=== PATIENT | female | born 1980 ===

== ENCOUNTER 2022-04-23 21:40 | Inpatient (IN) | payer BC ==
[~2022-04-23] VITALS: Ht 162.6 cm; Wt 55.5 kg
[2022-04-23] MEDS ORDERED: TYLENOL 500MG500 MG PO (22:52)
[2022-04-23] MEDS ORDERED: MOTRIN 200200 MG/TAB PO (22:53)
[2022-04-23 23:54] VITALS: BP 108/59; PULSE 117; TEMP 99.2
[2022-04-24] VITALS (7 sets, daily range): BP systolic 98–117; BP diastolic 59–65; PULSE 97–130; TEMP 97.4–101
[2022-04-24 01:22] LABS: CALCIUM 7.2 mg/dL (8.4-10.2); CREATININE, serum 1.17 mg/dL (0.57-1.11); MAGNESIUM 1.6 mg/dL (1.6-2.6)
[2022-04-24 03:00] LABS: COLLECTION METHOD CLEAN CATCH
[2022-04-24 03:04] LABS: URINE APPEARANCE Clear (CLEAR/HAZY); URINE BLOOD 1+ (NEGATIVE); URINE COLOR Yellow (YELLOW); URINE GLUCOSE Negative (NEGATIVE); URINE KETONE Negative (NEGATIVE); URINE NITRATE Negative (NEGATIVE); URINE PROTEIN(semi-quant) 1+ (NEGATIVE); URINE UROBILINOGEN 0.2 E.U/dL (0.2-1.0)
[2022-04-24 03:19] LABS: SQUAMOUS EPITHELIAL 0-2 /hpf (0-10); URINE BACTERIA Rare /hpf (NONE SEEN)
[2022-04-24 07:05] LABS: HEMATOCRIT 36.8 % (37.0-47.0); MEAN CELL VOLUME 90 fl (80.0-100.0); MEAN CORPUSCULAR HEMOGLOBIN 32 pg (27-31); MEAN CORPUSCULAR HGB CONC 35 g/dl (33.0-37.0); PLATELET COUNT 154 K/mm3 (130-400); RED BLOOD COUNT 4.07 M/mm3 (4.10-5.30); REDCELL DISTRIBUTION WIDTH-CV 12.3 % (11.5-14.5)
[2022-04-24 07:13] LABS: CALCIUM 7.5 mg/dL (8.4-10.2); CREATININE, serum 0.99 mg/dL (0.57-1.11); POTASSIUM 3.2 mmol/L (3.5-4.5)
--- NOTE | 2022-04-24 07:45 | NUR ---
Shift assesment complete. Patient is A&O. Telemetry on Sinus Tachycardia. Left forearm IV intact and infusing potasssium. Patient has complaints for throat discomfort. Peritonsillar area is red. Patient able to swallow without difficulty. Call light left within reach.
[2022-04-24 07:48] LABS: BAND 36 % (0-10); NEUTROPHILS 64 % (42.0-75.2); PLATELET ESTIMATE NORMAL (NORMAL)
--- NOTE | 2022-04-24 08:08 | NUR ---
Pt assessment complete. Pt sitting up in bed upon entry, she is A/O x4. Her breathing is even and unlabored on 2L O2 via NC. Pt reports she does have SOB. Also reports sore throat, mild redness visualized. Intermittent productive cough is present. Denies any body aches or nausea at this time. POC discussed with patient, no further needs. Call light within reach.
--- NOTE | 2022-04-24 19:31 | NUR ---
Pt was turned down to 0.5L O2 via NC, did reports some SOB/difficulty breathing. O2 sat assessed and >95% but turned up to 1L for comfort. POC discussed with patient and her guests. No needs at this time.
[2022-04-25 04:14] VITALS: BP 101/62; PULSE 87; TEMP 97.5
[2022-04-25 07:30] LABS: HEMOGLOBIN 11.3 g/dl (12.5-16.0); MEAN CELL VOLUME 89 fl (80.0-100.0); MEAN CORPUSCULAR HEMOGLOBIN 33 pg (27-31); MEAN CORPUSCULAR HGB CONC 37 g/dl (33.0-37.0); MEAN PLATELET VOLUME 10.1 fl (7.4-10.4); PLATELET COUNT 135 K/mm3 (130-400); RED BLOOD COUNT 3.48 M/mm3 (4.10-5.30); REDCELL DISTRIBUTION WIDTH-CV 12.9 % (11.5-14.5)
--- NOTE | 2022-04-25 07:39 | NUR ---
Critical WBC called to JONATHAN Chandra who read back the results.
[2022-04-25 07:41] VITALS: BP 102/66; PULSE 86; TEMP 96.9
[2022-04-25 07:51] LABS: INR 1.1 (0.8-3.0); PROTHROMBIN TIME 12.1 SECONDS (9.7-12.8)
[2022-04-25 08:06] LABS: MAGNESIUM 2.9 mg/dL (1.6-2.6)
[2022-04-25 08:09] LABS: C-REACTIVE PROTEIN 37.83 mg/dL (0.00-0.50)
--- NOTE | 2022-04-25 08:11 | NUR ---
PT ALERT AND AWAKE IN BED. COMPLAINTS OF SOB AFTER WALKING TO THE BATHROOM, REPORTS IT IS DIFFICULT FOR HER TO CATCH HER BREATH FOR A FEW MINUTES AFTER RETURNING TO BED. REPORTS SHE IS PRODUCING BROWN COLORED SPUTUM. NO COMPLAINTS OF PAIN. FRIEND AT BEDSIDE. NO NEEDS AT THIS TIME. BED IN LOWEST POSITION WITH CALL LIGHT WITHIN REACH.
[2022-04-25 08:18] LABS: BAND 19 % (0-10); LYMPHOCYTE 9 % (20.0-51.0); NEUTROPHILS 68 % (42.0-75.2); PLATELET ESTIMATE NORMAL (NORMAL)
[2022-04-25 09:23] LABS: ALBUMIN 1.8 gm/dL (3.5-5.0); BILIRUBIN,TOTAL 1.6 mg/dL (0.2-1.2); CALCIUM 7.3 mg/dL (8.4-10.2); CREATININE, serum 0.68 mg/dL (0.57-1.11); POTASSIUM 3.6 mmol/L (3.5-4.5); TOTAL PROTEIN 5.1 gm/dL (6.2-8.1)
--- NOTE | 2022-04-25 11:25 | NUR ---
The patient is being tested for TB. KRIS contacted the patient's room phone to complete intake. The patient's faith sister, Sister Jessica Lara (ph#[phone]), answered the phone. Jessica Lara states that the patient is unable to talk right now and the RN is in the room. Jessica Lara provides that the patient lives in [place] within the community of the adventism and sisters. She reports that the patient is independent with ADLs and does not have any DME. The patient's PCP is Dr. Batista and she receives her medications from [facility]. Jessica Lara states that the patient does not have a DPOA-HC, but they were interested in the form. Jessica Lara states that the patient is not and does not have any children. She states that the patient's parents are alive, but within the faith community, the faith sisters come before family. This is why they are interested in the DPOA-HC. Jessica Lara states that the plan is for the patient to return back home to their community upon discharge. KRIS collaborated with the patient's RN and provided her with the DPOA-HC form. *Discharge plan: home*
[2022-04-25 11:32] VITALS: BP 117/76; PULSE 98; TEMP 98.6
--- NOTE | 2022-04-25 14:14 | NUR ---
Dr. Feliciano notified in person this AM of positive blood cultures. Verbalized understanding.
[2022-04-25 15:37] VITALS: BP 104/71; PULSE 111; TEMP 99.3
[2022-04-25 19:22] VITALS: BP 116/78; PULSE 100; TEMP 97.5
[2022-04-26] VITALS (14 sets, daily range): BP systolic 97–164; BP diastolic 53–80; PULSE 63–101; TEMP 97.4–99.8
--- NOTE | 2022-04-26 08:15 | NUR ---
PT TRANSPORTED [facility]. CONSENT FOR BREEZ[facility] PROCEDURE HAD BEEN ORDERED AND SIGNED. NO CONSENT FOR ANESTHESIA WAS ORDERED. ANESTHESIA PROVIDER NOTIFIED 04/25 FOR CONSULT. CONSENT SHEET FOR ANESTHESIA WAS SENT DOWN WITH PATIENT TO [facility]. THIS RN NOTIFIED GUILHERME PIERCE THAT THE CONSENT FOR ANESTHESIA WAS NOT ORDERED AND NOT SIGNED. UPON RETURN TO THE FLOOR POST PROCEDURE, THE ANESTHESIA CONSENT FORM WAS FOUND STILL UNSIGNED. VSS POST PROCEDURE. PT RESTING COMFORTABLY IN BED.
[2022-04-26 08:36] LABS: INR 1.1 (0.8-3.0); PROTHROMBIN TIME 13.1 SECONDS (9.7-12.8)
[2022-04-26 08:40] LABS: CALCIUM 7.7 mg/dL (8.4-10.2); CREATININE, serum 0.59 mg/dL (0.57-1.11)
[2022-04-26 08:52] LABS: POTASSIUM 3.7 mmol/L (3.5-4.5)
[2022-04-26 19:48] LABS: TB GOLD INTERPRETATION Indeterminate (Negative)
[2022-04-27 03:10] VITALS: BP 115/77; PULSE 95; TEMP 98.1
[2022-04-27 06:33] LABS: HEMOGLOBIN 12.1 g/dl (12.5-16.0); MEAN CELL VOLUME 92 fl (80.0-100.0); MEAN CORPUSCULAR HEMOGLOBIN 32 pg (27-31); MEAN CORPUSCULAR HGB CONC 35 g/dl (33.0-37.0); MEAN PLATELET VOLUME 9.8 fl (7.4-10.4); RED BLOOD COUNT 3.79 M/mm3 (4.10-5.30); REDCELL DISTRIBUTION WIDTH-CV 13.2 % (11.5-14.5)
[2022-04-27 06:51] LABS: HEMATOCRIT 34.9 % (37.0-47.0); PLATELET COUNT 316 K/mm3 (130-400)
[2022-04-27 07:31] VITALS: BP 131/78; PULSE 108; TEMP 98.2
--- NOTE | 2022-04-27 08:00 | NUR ---
Patient is resting in bed, alert and oriented x 4, another sister at her bedside. Getting NS at 50 ml/hr. Complains of some coaugh specially with the potassium supplement. Assessment completed, no other need at this time. Call light within reach.
[2022-04-27 09:35] LABS: BAND 1 % (0-10); EOSINOPHIL 0 % (0-4); LYMPHOCYTE 19 % (20.0-51.0); NEUTROPHILS 75 % (42.0-75.2); PLATELET ESTIMATE NORMAL (NORMAL)
[2022-04-27 11:20] VITALS: BP 121/77; PULSE 108; TEMP 98.6
[2022-04-27 15:50] VITALS: BP 123/76; PULSE 107; TEMP 99.6
--- NOTE | 2022-04-27 16:26 | NUR ---
Received call from Sister Jessica Mast stating doctor Alex talked to Sister Jessica Lara, who makes decisions about pt treatment. They agreed to proceed with thoracentesis tomorrow 04/28 at 1030 am.
--- NOTE | 2022-04-27 18:43 | NUR ---
Patient had a shower this afternoon. Continue getting fluids and antibiotics per orders. At RA. Report will be given to night RN.
[2022-04-27 19:20] VITALS: BP 125/68; PULSE 113; TEMP 99.9
[2022-04-27 23:17] VITALS: BP 109/61; PULSE 106; TEMP 98.5
[2022-04-28 03:27] VITALS: BP 118/80; PULSE 93; TEMP 98.4
[2022-04-28 06:37] LABS: HEMOGLOBIN 12.4 g/dl (12.5-16.0); MEAN CELL VOLUME 93 fl (80.0-100.0); MEAN CORPUSCULAR HEMOGLOBIN 32 pg (27-31); MEAN CORPUSCULAR HGB CONC 34 g/dl (33.0-37.0); MEAN PLATELET VOLUME 9.6 fl (7.4-10.4); RED BLOOD COUNT 3.91 M/mm3 (4.10-5.30); REDCELL DISTRIBUTION WIDTH-CV 13.5 % (11.5-14.5)
[2022-04-28 06:46] LABS: C-REACTIVE PROTEIN 15.36 mg/dL (0.00-0.50); CALCIUM 8.3 mg/dL (8.4-10.2); CREATININE, serum 0.54 mg/dL (0.57-1.11); MAGNESIUM 1.8 mg/dL (1.6-2.6); POTASSIUM 3.9 mmol/L (3.5-4.5)
[2022-04-28 07:02] LABS: HEMATOCRIT 36.2 % (37.0-47.0)
[2022-04-28 07:03] LABS: PLATELET COUNT 451 K/mm3 (130-400)
[2022-04-28 07:25] VITALS: BP 130/76; PULSE 116; TEMP 100.1
[2022-04-28 07:38] LABS: BAND 6 % (0-10); EOSINOPHIL 1 % (0-4); LYMPHOCYTE 13 % (20.0-51.0); NEUTROPHILS 70 % (42.0-75.2); NUCLEATED RED BLOOD CELL 1 (0-6)
[2022-04-28 07:39] LABS: MYELOCYTE 0 % (0-0)
[2022-04-28 07:40] LABS: METAMYELOCYTE 3 % (0-0); PLATELET ESTIMATE INCREASED (NORMAL)
--- NOTE | 2022-04-28 08:00 | NUR ---
Patient is resting in bed, alert and orietned x 4, tachycardic, 100.1 fever. Assessment completed, no other needs at this time. Call light within reach.
[2022-04-28 11:19] VITALS: BP 116/70; PULSE 104; TEMP 97.8
--- NOTE | 2022-04-28 12:57 | NUR ---
Inside Sales Director rounds: Patient was sitting up on the window bench. 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 A visitor in ruin's full habit was with her, also seated on the window bench. Both declined project scheduler visit.
[2022-04-28 15:31] VITALS: BP 127/76; PULSE 118; TEMP 99.8
--- NOTE | 2022-04-28 19:10 | NUR ---
Patient has been calm in her room. Continues with low fever and tachycardic. Receiving antibiotics per orders. Report given to night RN.
[2022-04-28 20:27] VITALS: BP 116/68; PULSE 120; TEMP 98.1
[2022-04-29] VITALS (7 sets, daily range): BP systolic 94–118; BP diastolic 54–75; PULSE 110–123; TEMP 97.9–100.1
--- NOTE | 2022-04-29 01:14 | NUR ---
NURSING SHIFT ASSESSMENT COMPLETED. THE PATIENT DENIED PAIN. THE PLAN OF CARE WAS DISCUSSED AND EVENING MEDICATIONS DISCUSSED WELL. THE PATIENT REQUESTED FRESH WATER WHICH WAS PROVIDED. NO OTHER NEEDS AT THIS TIME. THE PATIENT DOES HAVE A PRODUCTIVE CONGESTED COUGH. BED IN LOW POSITION. CALL LIGHT AVAILABLE. WILL MONITOR.
[2022-04-29 06:31] LABS: HEMOGLOBIN 11.2 g/dl (12.5-16.0); MEAN CELL VOLUME 92 fl (80.0-100.0); MEAN CORPUSCULAR HEMOGLOBIN 32 pg (27-31); MEAN CORPUSCULAR HGB CONC 35 g/dl (33.0-37.0); MEAN PLATELET VOLUME 9.5 fl (7.4-10.4); PLATELET COUNT 514 K/mm3 (130-400); RED BLOOD COUNT 3.47 M/mm3 (4.10-5.30); REDCELL DISTRIBUTION WIDTH-CV 13.4 % (11.5-14.5)
[2022-04-29 06:36] LABS: HEMATOCRIT 31.8 % (37.0-47.0)
[2022-04-29 06:57] LABS: ALBUMIN 1.8 gm/dL (3.5-5.0); BILIRUBIN,TOTAL 1.1 mg/dL (0.2-1.2); CALCIUM 8.2 mg/dL (8.4-10.2); CREATININE, serum 0.57 mg/dL (0.57-1.11); MAGNESIUM 1.8 mg/dL (1.6-2.6); POTASSIUM 3.6 mmol/L (3.5-4.5); TOTAL PROTEIN 5.3 gm/dL (6.2-8.1)
--- NOTE | 2022-04-29 07:14 | NUR ---
LAB CALLED WITH A WBC OF 31.6 AT 06:36. REPORT GIVEN TO GUILHERME MONTAÑO AND SHE IS GOING TO RELAY THIS INFORMATION TO THE ONCOMING HOSPITALIST. THE PRIOR WBC WAS 37.4. CARE TRANSFERRED.
[2022-04-29 08:06] LABS: BAND 4 % (0-10); BASOPHIL 1 % (0-2); LYMPHOCYTE 10 % (20.0-51.0); METAMYELOCYTE 3 % (0-0); MYELOCYTE 3 % (0-0)
[2022-04-29 08:07] LABS: PLATELET ESTIMATE INCREASED (NORMAL)
[2022-04-29 08:10] LABS: NEUTROPHILS 70 % (42.0-75.2)
--- NOTE | 2022-04-29 08:33 | NUR ---
PT AWAKE, ALERT AND ORIENTED SEATED IN THE RECLINER. AM ASSESSMENT COMPLETE, NO COMPLAINTS OF PAIN OR NAUSEA.
--- NOTE | 2022-04-29 12:01 | NUR ---
PT OFF THE FLOOR TO CT
[2022-04-30 03:39] VITALS: BP 118/68; PULSE 92; TEMP 98.2
[2022-04-30 06:49] LABS: HEMOGLOBIN 11.3 g/dl (12.5-16.0); MEAN CELL VOLUME 95 fl (80.0-100.0); MEAN CORPUSCULAR HEMOGLOBIN 32 pg (27-31); MEAN CORPUSCULAR HGB CONC 34 g/dl (33.0-37.0); MEAN PLATELET VOLUME 9.6 fl (7.4-10.4); PLATELET COUNT 604 K/mm3 (130-400); RED BLOOD COUNT 3.52 M/mm3 (4.10-5.30); REDCELL DISTRIBUTION WIDTH-CV 13.6 % (11.5-14.5)
[2022-04-30 06:59] LABS: CALCIUM 8.4 mg/dL (8.4-10.2); CREATININE, serum 0.57 mg/dL (0.57-1.11); MAGNESIUM 1.9 mg/dL (1.6-2.6); POTASSIUM 4.1 mmol/L (3.5-4.5)
[2022-04-30 07:00] LABS: HEMATOCRIT 33.3 % (37.0-47.0)
[2022-04-30 07:31] LABS: BAND 4 % (0-10); BASOPHIL 1 % (0-2); EOSINOPHIL 1 % (0-4); LYMPHOCYTE 20 % (20.0-51.0); METAMYELOCYTE 1 % (0-0); NEUTROPHILS 68 % (42.0-75.2)
[2022-04-30 07:32] VITALS: BP 124/71; PULSE 102; TEMP 99
[2022-04-30 07:32] LABS: PLATELET ESTIMATE INCREASED (NORMAL)
--- NOTE | 2022-04-30 08:00 | NUR ---
Patient is eating breakfast on bed, alert and oriented x 4, states she feels better. Continues with cough. Assessment completed, meds provided. No other needs at this time. Call light within reach.
[2022-04-30 11:01] LABS: PLEURAL FLUID RBC 7000 /mm3 (0-0)
[2022-04-30 11:11] VITALS: BP 126/78; PULSE 128; TEMP 98.4
[2022-04-30 11:23] LABS: PLEURAL FLUID WBC 30905 /mm3
[2022-04-30 11:24] LABS: PLEURAL FLUID COLOR YELLOW
[2022-04-30 11:25] LABS: PLEURAL FLUID APPEARANCE CLOUDY
[2022-04-30 15:39] VITALS: BP 112/68; PULSE 107; TEMP 99.1
--- NOTE | 2022-04-30 19:12 | NUR ---
Patient continues with cough, PRN provided. She has some pain with breathing, getting ibuprofen. Report given to night RN.
[2022-04-30 19:56] VITALS: BP 111/74; PULSE 113; TEMP 98.4
[2022-05-01] VITALS (7 sets, daily range): BP systolic 103–125; BP diastolic 61–74; PULSE 103–121; TEMP 96.7–99.1
[2022-05-01 00:12] LABS: BODY FLUID PH (AMS) 8 (())
[2022-05-01 06:55] LABS: HEMOGLOBIN 11.5 g/dl (12.5-16.0); MEAN CELL VOLUME 94 fl (80.0-100.0); MEAN CORPUSCULAR HEMOGLOBIN 32 pg (27-31); MEAN CORPUSCULAR HGB CONC 34 g/dl (33.0-37.0); MEAN PLATELET VOLUME 9.2 fl (7.4-10.4); RED BLOOD COUNT 3.59 M/mm3 (4.10-5.30); REDCELL DISTRIBUTION WIDTH-CV 13.3 % (11.5-14.5)
[2022-05-01 07:00] LABS: HEMATOCRIT 33.9 % (37.0-47.0); PLATELET COUNT 797 K/mm3 (130-400)
[2022-05-01 07:10] LABS: CALCIUM 8.9 mg/dL (8.4-10.2); CREATININE, serum 0.56 mg/dL (0.57-1.11); MAGNESIUM 2.1 mg/dL (1.6-2.6)
[2022-05-01 07:30] LABS: BAND 5 % (0-10); EOSINOPHIL 2 % (0-4); LYMPHOCYTE 9 % (20.0-51.0); MYELOCYTE 1 % (0-0)
[2022-05-01 07:31] LABS: METAMYELOCYTE 1 % (0-0); NEUTROPHILS 75 % (42.0-75.2); PLATELET ESTIMATE INCREASED (NORMAL)
--- NOTE | 2022-05-01 09:26 | NUR ---
Take Up Supervisor met with patient to review discharge plan. Patient has no questions or concerns at this time and plans to return home at time of discharge. Discharge Plan: Home
--- NOTE | 2022-05-01 10:00 | NUR ---
Pt ambulated in zimmerman approximately 350 feet. No complaints of shortness of air. Pulse oximetry 100% after ambulation.
--- NOTE | 2022-05-01 18:02 | NUR ---
Shift assessment performed. Scheduled medications given. PRN motrin given Q4 per request of patient. VSS. Patient A&O. Currently on RA. Patient currently resting in bed, denies any pain, discomfort, SOA, or further need at this time. Call light in reach.
[2022-05-02 03:45] VITALS: BP 115/72; PULSE 102; TEMP 97.9
[2022-05-02 06:57] LABS: HEMOGLOBIN 11.4 g/dl (12.5-16.0); MEAN CELL VOLUME 96 fl (80.0-100.0); MEAN CORPUSCULAR HEMOGLOBIN 32 pg (27-31); MEAN CORPUSCULAR HGB CONC 33 g/dl (33.0-37.0); MEAN PLATELET VOLUME 9.7 fl (7.4-10.4); PLATELET COUNT 857 K/mm3 (130-400); RED BLOOD COUNT 3.58 M/mm3 (4.10-5.30); REDCELL DISTRIBUTION WIDTH-CV 13.2 % (11.5-14.5)
[2022-05-02 07:01] LABS: HEMATOCRIT 34.2 % (37.0-47.0)
[2022-05-02 07:04] LABS: CALCIUM 8.8 mg/dL (8.4-10.2); CREATININE, serum 0.59 mg/dL (0.57-1.11)
[2022-05-02 07:56] LABS: BAND 2 % (0-10); LYMPHOCYTE 9 % (20.0-51.0); METAMYELOCYTE 1 % (0-0); NEUTROPHILS 84 % (42.0-75.2); PLATELET ESTIMATE INCREASED (NORMAL)
[2022-05-02 07:59] VITALS: BP 114/60; PULSE 109; TEMP 97.7
--- NOTE | 2022-05-02 08:00 | NUR ---
Patient is on the chair having breakfast, alert and oriented x 4, states she feels better. She is coughing less. Still states pain on the right side. Assessment completed, meds provided. No other needs at this time. Call light within reach.
[2022-05-02 12:14] VITALS: BP 124/76; PULSE 112; TEMP 97.7
[2022-05-02 15:47] VITALS: BP 117/64; PULSE 124; TEMP 98.6
[2022-05-02 19:33] VITALS: BP 109/65; PULSE 111; TEMP 97.8
[2022-05-02 23:59] VITALS: BP 104/62; PULSE 98; TEMP 98.2
[2022-05-03 03:40] VITALS: BP 114/76; PULSE 96; TEMP 97.9
[2022-05-03 06:41] LABS: HEMOGLOBIN 10.8 g/dl (12.5-16.0); MEAN CELL VOLUME 94 fl (80.0-100.0); MEAN CORPUSCULAR HEMOGLOBIN 32 pg (27-31); MEAN CORPUSCULAR HGB CONC 34 g/dl (33.0-37.0); MEAN PLATELET VOLUME 9.1 fl (7.4-10.4); PLATELET COUNT 1066 K/mm3 (130-400); REDCELL DISTRIBUTION WIDTH-CV 13.1 % (11.5-14.5)
[2022-05-03 06:58] LABS: CALCIUM 8.9 mg/dL (8.4-10.2); CREATININE, serum 0.55 mg/dL (0.57-1.11); POTASSIUM 3.9 mmol/L (3.5-4.5)
[2022-05-03 07:06] LABS: HEMATOCRIT 32.1 % (37.0-47.0)
[2022-05-03 07:18] LABS: BAND 1 % (0-10); EOSINOPHIL 5 % (0-4); LYMPHOCYTE 7 % (20.0-51.0); METAMYELOCYTE 1 % (0-0); MYELOCYTE 2 % (0-0); NEUTROPHILS 81 % (42.0-75.2); PLATELET ESTIMATE INCREASED (NORMAL)
[2022-05-03 07:30] VITALS: BP 106/66; PULSE 101; TEMP 97.4
--- NOTE | 2022-05-03 09:52 | NUR ---
PT AWAKE AND ALERT IN CHAIR. NO COMPLAINTS OF PAIN, SOB, OR NAUSEA. HAS QUESTIONS ABOUT DISPOSITION AND IV ANTIBIOTICS. NO OTHER NEEDS AT THIS TIME.
[2022-05-03 11:19] VITALS: BP 115/68; PULSE 104; TEMP 97.3
[2022-05-03 15:43] VITALS: BP 120/65; PULSE 114; TEMP 97.4
[2022-05-03 20:05] VITALS: BP 114/68; PULSE 108; TEMP 98.6
--- NOTE | 2022-05-03 23:04 | NUR ---
Pt in bed for shift assessment around 2129. A&Ox4. Pt continue reporting pain that feels like "electricity" on the right side of her back. Pt was offered Tylenol and she accepted it. All medication given per emar. LAC INT DC with tip intact. RAC INT is CDI. No further requests were expressed at this time. Education provided on IS use. Pt verbalized understanding. Belongings and call light within reach.
[2022-05-04] VITALS (7 sets, daily range): BP systolic 105–127; BP diastolic 64–77; PULSE 83–116; TEMP 97.4–98.7
[2022-05-04 06:15] LABS: HEMOGLOBIN 10.6 g/dl (12.5-16.0); MEAN CELL VOLUME 94 fl (80.0-100.0); MEAN CORPUSCULAR HEMOGLOBIN 32 pg (27-31); MEAN CORPUSCULAR HGB CONC 33 g/dl (33.0-37.0); MEAN PLATELET VOLUME 9.3 fl (7.4-10.4); PLATELET COUNT 1199 K/mm3 (130-400); RED BLOOD COUNT 3.37 M/mm3 (4.10-5.30)
[2022-05-04 06:17] LABS: HEMATOCRIT 31.8 % (37.0-47.0)
[2022-05-04 06:38] LABS: BILIRUBIN,TOTAL 0.6 mg/dL (0.2-1.2); C-REACTIVE PROTEIN 15.65 mg/dL (0.00-0.50); CALCIUM 9.2 mg/dL (8.4-10.2); CREATININE, serum 0.62 mg/dL (0.57-1.11); POTASSIUM 4.2 mmol/L (3.5-4.5); TOTAL PROTEIN 6.7 gm/dL (6.2-8.1)
[2022-05-04 07:03] LABS: BAND 2 % (0-10); BASOPHIL 1 % (0-2); EOSINOPHIL 2 % (0-4); NEUTROPHILS 73 % (42.0-75.2)
[2022-05-04 07:04] LABS: LYMPHOCYTE 11 % (20.0-51.0); METAMYELOCYTE 2 % (0-0); PLATELET ESTIMATE INCREASED (NORMAL)
--- NOTE | 2022-05-04 07:30 | NUR ---
PT AWAKE, ALERT AND ORIENTED IN BED. BACK PAIN NOTED, BUT IMPROVING AND MANAGED WELL WITH PRNS. CT TO BE COMPLETED THIS AM. BED IN LOWEST POSITION, CALL LIGHT WITHIN REACH.
--- NOTE | 2022-05-04 23:21 | NUR ---
NURSING SHIFT ASSESSMENT COMPLETED. THE PATIENT WAS IN BED RESTING COMFORTABLY. PAIN RIGHT CHEST WITH COUGHING RATED ABOUT A 3/10. PRN TYLENOL TO BE PROVIDED. THE PATIENT DENIED NEEDS OTHER THAN THE TYLENOL. THE PLAN OF CARE AND EVENING MEDICATIONS DISCUSSED. PERSONAL ITEMS WITHIN REACH. CALL LIGHT WITHIN REACH AND BED IN LOW POSITION. WILL MONITOR.
[2022-05-05 03:37] VITALS: BP 112/65; PULSE 102; TEMP 98.6
[2022-05-05 06:28] LABS: HEMOGLOBIN 11.3 g/dl (12.5-16.0); MEAN CELL VOLUME 96 fl (80.0-100.0); MEAN CORPUSCULAR HEMOGLOBIN 32 pg (27-31); MEAN CORPUSCULAR HGB CONC 33 g/dl (33.0-37.0); PLATELET COUNT 1264 K/mm3 (130-400); RED BLOOD COUNT 3.56 M/mm3 (4.10-5.30); REDCELL DISTRIBUTION WIDTH-CV 12.8 % (11.5-14.5)
[2022-05-05 06:30] LABS: HEMATOCRIT 34.1 % (37.0-47.0)
[2022-05-05 06:35] LABS: CALCIUM 9.1 mg/dL (8.4-10.2); CREATININE, serum 0.61 mg/dL (0.57-1.11); POTASSIUM 3.8 mmol/L (3.5-4.5)
[2022-05-05 07:02] LABS: BAND 1 % (0-10); LYMPHOCYTE 13 % (20.0-51.0); METAMYELOCYTE 2 % (0-0); NEUTROPHILS 73 % (42.0-75.2); PLATELET ESTIMATE INCREASED (NORMAL)
[2022-05-05 07:07] VITALS: BP 121/69; PULSE 111; TEMP 98
--- NOTE | 2022-05-05 07:15 | NUR ---
Pt assessment complete. Pt is sitting up in the recliner upon entry, she is A/O x4. Her breathing is even and unlabored on RA. Pt denies SOB at this time. Intermittent cough present. Pain improved after Motrin. Denies N/V. No needs at this time. Call light within reach.
[2022-05-05 13:41] VITALS: BP 121/71; PULSE 111; TEMP 98.7
[2022-05-05 16:55] VITALS: BP 132/79; PULSE 108; TEMP 97.5
--- NOTE | 2022-05-05 18:50 | NUR ---
Pt remained on RA through the day, continued to have mild SOB with exertion. PRN Ibuprofen administered for intermittent pain which relieved pain. She had many visitors through the day. Resting in bed at this time.
[2022-05-05 20:42] VITALS: BP 136/77; PULSE 108; TEMP 97.9
--- NOTE | 2022-05-05 23:21 | NUR ---
Pt assessment completed at 2130. A&O x4. All medication given per emar. After requesting pt to perform a few deep breathings during auscultation, pt expressed needing her pain medication. IS exercises were not performed due to pain. No other needs or concerns were expressed at this time. RAC INT is CDI. Fluids running at this time. Belongigns and call light within reach.
[2022-05-05 23:57] VITALS: BP 108/67; PULSE 89; TEMP 98.1
[2022-05-06 03:31] VITALS: BP 112/68; PULSE 94; TEMP 97.9
[2022-05-06 06:07] LABS: HEMOGLOBIN 11.4 g/dl (12.5-16.0); MEAN CELL VOLUME 92 fl (80.0-100.0); MEAN CORPUSCULAR HEMOGLOBIN 32 pg (27-31); MEAN CORPUSCULAR HGB CONC 34 g/dl (33.0-37.0); MEAN PLATELET VOLUME 8.7 fl (7.4-10.4); PLATELET COUNT 1313 K/mm3 (130-400); RED BLOOD COUNT 3.61 M/mm3 (4.10-5.30); REDCELL DISTRIBUTION WIDTH-CV 12.5 % (11.5-14.5)
[2022-05-06 06:14] LABS: HEMATOCRIT 33.3 % (37.0-47.0)
[2022-05-06 06:23] LABS: CALCIUM 9.5 mg/dL (8.4-10.2); CREATININE, serum 0.62 mg/dL (0.57-1.11)
[2022-05-06 07:50] LABS: BAND 4 % (0-10); BASOPHIL 1 % (0-2); EOSINOPHIL 2 % (0-4); LYMPHOCYTE 14 % (20.0-51.0); METAMYELOCYTE 1 % (0-0); MYELOCYTE 6 % (0-0); NEUTROPHILS 59 % (42.0-75.2); PLATELET ESTIMATE INCREASED (NORMAL)
[2022-05-06 08:06] VITALS: BP 129/80; PULSE 122; TEMP 97.5
--- NOTE | 2022-05-06 09:52 | NUR ---
RKIS met with patient and head sister at bedside to discuss [facility] again. KRIS notified them that at this point [facility] is not comfortable sending the patient home with oral antibiotics and outpatient follow up. Informed them that at this point [facility] is our only option. Sister and patient are ok with going to [facility] if this is her only option. Phone call made to Rylan to place patient at the top of his list. Per Rylan, patients insurance is appoved for LT[facility]. Clinical updates faxed. Rylan will let me know on bed status. Discharge plan:[facility]
[2022-05-06 11:18] VITALS: BP 117/73; PULSE 105; TEMP 98.2
[2022-05-06 15:32] VITALS: BP 115/73; PULSE 108; TEMP 97.7
--- NOTE | 2022-05-06 19:02 | NUR ---
Patient had uneventful day. Minimal pain, relieved by PRNs. Complaints of cough toward the end of the day, relieved by PRNs. Resting in room with friends.
[2022-05-06 20:10] VITALS: BP 129/75; PULSE 117; TEMP 97.9
[2022-05-07 00:56] VITALS: BP 117/71; PULSE 92; TEMP 97.9
[2022-05-07 04:30] VITALS: BP 127/77; PULSE 97; TEMP 97.9
--- NOTE | 2022-05-07 05:54 | NUR ---
PT HAD AN UNEVENTFUL NIGHT AND WAS ABLE TO GET REST. PTS VITAL SIGNS REMAINED WITHIN NORMAL LIMITS, MOTRIN GIVEN X1 PT ALSO REQUESTED AIDE FOR COUGH. MEDICATIONS GIVEN PER MAY. PT CURRENTLY RESTING WITH EYES CLOSED IN BED, NO NEW REQUESTS AT THIS TIME
[2022-05-07 06:51] LABS: CALCIUM 9.6 mg/dL (8.4-10.2); CREATININE, serum 0.65 mg/dL (0.57-1.11); HEMOGLOBIN 11.7 g/dl (12.5-16.0); MEAN CELL VOLUME 95 fl (80.0-100.0); MEAN CORPUSCULAR HEMOGLOBIN 32 pg (27-31); MEAN CORPUSCULAR HGB CONC 33 g/dl (33.0-37.0); MEAN PLATELET VOLUME 8.7 fl (7.4-10.4); PLATELET COUNT 1220 K/mm3 (130-400); POTASSIUM 3.9 mmol/L (3.5-4.5); RED BLOOD COUNT 3.72 M/mm3 (4.10-5.30); REDCELL DISTRIBUTION WIDTH-CV 12.5 % (11.5-14.5)
[2022-05-07 06:55] LABS: HEMATOCRIT 35.3 % (37.0-47.0)
[2022-05-07 07:33] VITALS: BP 111/71; PULSE 95; TEMP 97.6
[2022-05-07 07:35] LABS: BAND 3 % (0-10); BASOPHIL 2 % (0-2); EOSINOPHIL 1 % (0-4); LYMPHOCYTE 19 % (20.0-51.0); METAMYELOCYTE 5 % (0-0)
[2022-05-07 07:37] LABS: MYELOCYTE 1 % (0-0); NEUTROPHILS 60 % (42.0-75.2)
[2022-05-07 07:38] LABS: PLATELET ESTIMATE INCREASED (NORMAL)
--- NOTE | 2022-05-07 08:00 | NUR ---
Patient is having breakfast sitting up on chair. Alert and oriented x 4, states she just had some motrin and cough meds. Continues with cough but right now under control. Tachycardic. Assessment completed. No other needs at this time. Call light within reach.
[2022-05-07 09:07] LABS: PATHOLOGY DIFF REVIEW OK
[2022-05-07 11:36] VITALS: BP 117/70; PULSE 105; TEMP 97.8
--- NOTE | 2022-05-07 12:49 | NUR ---
Report given to GUILHERME Blount at [facility].
[2022-05-07 13:32] VITALS: BP 117/70; PULSE 105; TEMP 97.8
--- NOTE | 2022-05-07 14:01 | NUR ---
Physical Plant Employee was notified by Rylan at [facility] that they have a bed available for patient today. Rylan met with patient who is agreeable to discharge to [facility] in [facility] today. KRIS also met with patient and her two sisters at bedside. All are in agreement with discharge to [facility] in . KRIS contacted [facility] and set transport time for 1400. KRIS placed completed EMS forms on patient's chart. KRIS faxed discharge orders to Rylan at [facility]. Discharge Plan: [facility]
--- NOTE | 2022-05-07 14:50 | NUR ---
Patient was picked up by EMS at 1415.
== END 2022-05-07 14:15 | DRG 871 ==
LOC: MEDICAL 21:40
PROVIDERS: Internal Medicine Pulmonary Disease; Physician Assistant; Student in an Organized Health Care Education/Training Program; ADMIT Internal Medicine
PROC: 0W993ZX Drainage of Right Pleural Cavity, Percutaneous Approach, Diagnostic (ICD-10-PCS; principal; 2022-04-30)
DX: A40.0 Sepsis due to streptococcus, group A (principal); J15.4 Pneumonia due to other streptococci; J96.01 Acute respiratory failure with hypoxia; J90 Pleural effusion, not elsewhere classified; E87.1 Hypo-osmolality and hyponatremia; N17.9 Acute kidney failure, unspecified; D75.839 Thrombocytosis, unspecified; E87.6 Hypokalemia; K76.89 Other specified diseases of liver; H69.82 Other specified disorders of Eustachian tube, left ear; D64.9 Anemia, unspecified; E88.09 Other disorders of plasma-protein metabolism, not elsewhere classified
CPT/HCPCS: A9284; J0696; J1644; J1650; J2543; J2704; J3475; J3480; J7030; Q9967